=== PATIENT | female | born 1950 | race Caucasian/White ===

== ENCOUNTER 2017-01-19 13:46 | Outpatient (CLI) | payer MEDICAID | END 2017-01-19 13:47 | disposition home or self-care (01) | DX: M81.0 Age-related osteoporosis without current pathological fracture (principal); Z12.11 Encounter for screening for malignant neoplasm of colon ==

== ENCOUNTER 2017-01-26 11:10 | Outpatient (CLI) | payer MEDICAID | END 2017-01-26 11:11 | disposition home or self-care (01) | DX: Z12.11 Encounter for screening for malignant neoplasm of colon (principal) ==

== ENCOUNTER 2017-02-09 10:08 | Outpatient (CLI) | payer MEDICAID | END 2017-02-09 10:09 | disposition home or self-care (01) | DX: M85.89 Other specified disorders of bone density and structure, multiple sites (principal) ==

== ENCOUNTER 2017-02-09 10:09 | Outpatient (CLI) | payer MEDICAID | END 2017-02-09 10:10 | disposition home or self-care (01) | DX: Z12.31 Encounter for screening mammogram for malignant neoplasm of breast (principal); Z80.3 Family history of malignant neoplasm of breast ==

== ENCOUNTER 2018-07-26 15:50 | Outpatient (CLI) | payer MEDICARE ==
--- NOTE | 2018-07-28 10:08 | Mammography Report ---
Reason: SCREENING MAMMO Procedure Date: 07/26/2018 Accession Number: [id number] / [id number] Procedure: [facility] - Screening Mammo Dig Bilat CPT Code: FULL RESULT: EXAM: Screening Mammo Dig Bilat DATE: 07/26/2018 4:11 PM CLINICAL HISTORY: 68-year-old female with family history of breast cancer in the grandmother at an unknown age and personal history of biopsy of the breast, laterality not specified. TECHNIQUE: Bilateral CC and MLO views were obtained. COMPARISON: 02/09/2017, 02/08/2016. FINDINGS: The breasts demonstrate scattered fibroglandular densities bilaterally. There are typically benign vascular calcifications bilaterally. No suspicious masses, clustered microcalcifications, or regions of architectural distortion are identified. IMPRESSION: Benign findings RECOMMENDATION: Routine annual screening unless otherwise clinically indicated. BIRADS CATEGORY 2: Benign findings STANDARD QUALIFYING STATEMENTS: 1. This examination was reviewed without the aid of Computer-Aided Detection (CAD). 2. A negative or benign imaging report should not delay biopsy if clinically suspicious findings are present. Consider surgical consultation if warrented. More than 5% of cancers are not identified by imaging. 3. Dense breasts may obscure an underlying neoplasm.
== END 2018-07-26 15:51 | disposition home or self-care (01) ==
LOC: DI 15:50
DX: Z12.31 Encounter for screening mammogram for malignant neoplasm of breast (principal); Z80.3 Family history of malignant neoplasm of breast
CPT/HCPCS: 77067